=== PATIENT | female | born 1935 | race Caucasian/White ===

== ENCOUNTER 2016-05-23 08:27 | Emergency (ER) | payer MEDICARE, OTHER ==
--- NOTE | 2016-05-23 08:55 | Emergency Department Record ---
History of Present Illness - General Chief complaint: Extremity Problem Stated complaint: LT ARM PAIN, PT HAS AFIB Time Seen by Provider: 05/23/16 08:29 Source: Patient Mode of Arrival: Ambulatory Limitations: No limitations - History of Present Illness Initial comments: 81 yo female presents to ED with a CC of left sided upper arm pain for the past 3-4 days after lifting a heavy object at home. Patient reports pain with movement and palpation of the left upper arm. Patient reports a "twinge" of discomfort in her chest that is non-exertional in nature. Patient denies fevers , chills, or recent illness. Patient does report a hyistory of atrial fibrillation, on Xarelto. Patient reports that her last stress test was in 1.[address] Story. Complaint: Extremity pain Onset/Timin -: Days(s) Location: Left, Arm History of Same: No Severity scale (1-10): 8 Quality: Aching Consistency: Constant Improves with: Nothing Worsens with: Nothing Associated Symptoms: Other - Related Data Home Medications Medication Instructions Recorded Confirmed Last Taken Aspirin [Ecotrin] 325 mg PO DAILY 09/02/15 05/23/16 1 Day Ago Albuterol Sulfate [Ventolin Hfa] 1 - 2 puff IH .EVERY 4-6 HOURS PRN 12/03/15 Unknown Atenolol [Tenormin] 25 mg PO DAILY 12/03/15 05/23/16 Unknown Escitalopram Oxalate [Lexapro] 10 mg PO DAILY 12/03/15 05/23/16 Unknown Estrogens, Conjugated [Premarin] 0.3 mg PO DAILY 12/03/15 05/23/16 Unknown Gluc/Nathaniel-MSM#1/C/Yandel/Syed/Bor 1 tab PO DAILY 12/03/15 05/23/16 Unknown [Osteo Bi-Flex] Hyoscyamine Sulfate [Levsin Odt] 0.125 mg PO Q6H PRN 12/03/15 05/23/16 Unknown Multivit-Min/FA/Lycopene/Lut 1 each PO DAILY 12/03/15 05/23/16 Unknown [Centrum Silver Tablet] Apixaban [Eliquis] 2.5 mg PO DAILY 05/23/16 05/23/16 Unknown Allergies Allergy/AdvReac Type Severity Reaction Status Date / Time No Known Drug Allergies Allergy Verified 09/02/15 13:01 Travel Screening - Travel/Exposure Within Last 30 Days Have you traveled within the last 30 days?: No Review of Systems Constitutional: Denies: Chills, Fever, Malaise, Night sweats Eyes: Denies: Eye discharge, Eye pain ENT: Denies: Congestion, Ear pain, Epistaxis Respiratory: Denies: Cough, Dyspnea Cardiovascular: Reports: Chest pain, Palpitations. Denies: Dyspnea on exertion , Syncope Endocrine: Denies: Fatigue, Heat or cold intolerance Gastrointestinal: Denies: Abdominal pain, Nausea, Vomiting Genitourinary: Denies: Dysuria, Frequency, Hematuria, Incontinence Musculoskeletal: Denies: Arthralgia, Back pain, Gout, Joint swelling Skin: Denies: Bruising, Change in color Neurological: Denies: Abnormal gait, Confusion, Headache, Seizure Psychiatric: Denies: Anxiety Hematological/Lymphatic: Reports: Easy bleeding. 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 - NEURO Hx Neuro Disorders: No - GI Hx GI Disorders: No - Hx Genitourinary Disorders: No - ENDOCRINE Hx Endocrine Disorders: No - MUSCULOSKELETAL Hx Musculoskeletal Disorders: No - PSYCH Hx Psych Problems: No - HEMATOLOGY/ONCOLOGY Hx Hematology/Oncology Disorders: No Family Medical History Any Significant Family History?: No Physical Exam - General General Appearance: Alert, Oriented x3, Cooperative, No acute distress Limitations: No limitations - Head Head exam: Atraumatic, Normocephalic, Normal inspection Head exam detail: negative: Abrasion, Contusion, Gilliam's sign, General tenderness, Hematoma, Laceration - Eye Eye exam: Normal appearance. negative: Conjunctival injection, Periorbital swelling, Periorbital tenderness, Scleral icterus - ENT Ear exam: negative: Auricular hematoma, Auricular trauma Nasal Exam: negative: Active bleeding, Discharge, Dried blood, Foreign body Mouth exam: negative: Drooling, Laceration, Muffled voice, Tongue elevation - Neck Neck exam: Normal inspection. negative: Meningismus, Tenderness - Respiratory Respiratory exam: Normal lung sounds bilaterally. negative: Rales, Respiratory distress, Rhonchi, Stridor - Cardiovascular Cardiovascular Exam: Irregular rhythm - GI/Abdominal GI/Abdominal exam: Soft. negative: Rebound, Rigid, Tenderness - Rectal Rectal exam: Deferred - exam: Deferred - Extremities Extremities exam: Tenderness, Other (TTP over the lateral aspect of the left upper extremity, pain with active ROM of the arm. Post-operative chagnes to the left shoulder (rotator cuff per patient). Rapier Insertion Loom Fixer strength 5/5 and symmetric bilaterally.). negative: Calf tenderness, Pedal edema - Back Back exam: Denies: CVA tenderness (R), CVA tenderness (L) - Neurological Neurological exam: Alert, Normal gait, Oriented X3 - Psychiatric Psychiatric exam: Normal affect, Normal mood - Skin Skin exam: Normal color. negative: Abrasion Type of lesion: negative: abrasion Course Vital Signs 05/23/16 08:29 Temperature 97.9 F Pulse Rate 76 Respiratory 18 Rate Blood Pressure 156/91 Pulse Ox 99 - Reevaluation(s) Reevaluation #1: 05/23/16 08:55 Patient is currently CP-free. Discussed with the patient potential transfer for cardiac evaluation, patient declined at this time. After discussion with the patient, will perform (2) sets of cardiac enzymes, and if within normal limits, patient would like to go home and see Dr. Story Wednesday in the [facility] Wednesday afternoon. Orders placed. Reevaluation #2: 05/23/16 09:14 EKG: NSR 52 with PACs Q waves III, AVF, Q waves V1-V3, no acute ST-T wave change Unchanged from 12/03/15. Reevaluation #3: 05/23/16 09:36 Initial labs reviewed and are grossly unremarkable for an acute process. Will continue to monitor. Reevaluation #4: 05/23/16 12:47 Repeat Troponin is negative for myocardial damage. Patient appears stable for discharge home with instructions to follow-up with Dr. Story Wednesday for further cardiac evaluation. Medical Decision Making - Lab Data Result diagrams: 05/23/16 09:00 05/23/16 09:00 Disposition Disposition: Discharge Clinical Impression: Left upper arm pain Disposition: Home, Self-Care Condition: (2) Stable Instructions: Arthralgia (ED) Additional Instructions: Return to ED if your symptoms worsen or if you have any concerns. Follow-up with Dr. Story Wednesday in the [facility]. Referrals: SCOT STORY [DOCTOR OF OSTEOPATH] - [facility] [Provider Group] Forms: Patient Portal Access Time of Disposition: 12:48
[2016-05-23 09:08] LABS: BASO % 0.5 % (0-6); EOS % 2.1 % (0-6); HEMATOCRIT 44.5 % (35.0-47.0); HEMOGLOBIN 14.4 gm/dl (11.6-16.0); MEAN CELL VOLUME 96.9 fl (81-97); MEAN CORPUSCULAR HEMOGLOBIN 31.4 pg (27-33); MEAN CORPUSCULAR HGB CONC 32.4 g/dl (32-36); MEAN PLATELET VOLUME 10.3 fl (7.4-10.4); MONO % 5.4 % (0-9); PLATELET COUNT 344 K/uL (130-400); RED BLOOD COUNT 4.59 M/uL (3.80-5.40); RED CELL DISTRIBUTION WIDTH 13.3 % (11.5-14.5); WHITE BLOOD COUNT W/O DIFF 6.3 K/uL (4.2-12.2)
[2016-05-23 09:23] LABS: ALB/GLOB RATIO 1.7 (1.1-1.8); ALBUMIN 4.7 gm/dL (3.5-5.0); ALKALINE PHOSPHATASE 86 U/L (38-126); ALT/SGPT 20 U/L (9-52); ANION GAP 10.6 (7-16); AST/SGOT 21 U/L (14-36); BILIRUBIN,TOTAL 0.57 mg/dL (0.2-1.3); BLOOD UREA NITROGEN 17 mg/dL (7-17); CARBON DIOXIDE 29.4 mmol/L (22-30); CREATINE PHOSPHOKINASE 66 U/L (30-135); EST GLOMERULAR FILTRATION RATE 56 ml/min; GLUCOSE,RANDOM 101 mg/dL (70-110); TOTAL PROTEIN 7.5 gm/dL (6.3-8.2)
[2016-05-23 09:34] LABS: CKMB 0.7 ug/L (0-6)
[2016-05-23 09:35] LABS: TROPONIN I < 0.012 ng/mL (0.00-0.034)
[2016-05-23 12:43] LABS: CKMB 0.5 ug/L (0-6); TROPONIN I < 0.012 ng/mL (0.00-0.034)
== END 2016-05-23 12:55 | disposition home or self-care (01) ==
LOC: ER 08:27
DX: M79.622 Pain in left upper arm (principal); I48.91 Unspecified atrial fibrillation; Z79.01 Long term (current) use of anticoagulants; Z87.891 Personal history of nicotine dependence
CPT/HCPCS: 80053; 82550; 82553; 84484; 85025; 93005; 93010; 99284

== ENCOUNTER 2016-07-28 20:19 | Emergency (ER) | payer MEDICARE, OTHER ==
[2016-07-28] MEDS ORDERED: NITROGLYCERIN 0.4MG SL TABLET #25 BTL SL PRN (21:01)
[2016-07-28 21:11] LABS: BASO % 0.3 % (0-6); GRAN % 53.8 % (47-80); HEMATOCRIT 43.4 % (35.0-47.0); HEMOGLOBIN 13.9 gm/dl (11.6-16.0); LYMPH % 38.6 % (16-45); MEAN CELL VOLUME 96.2 fl (81-97); MEAN CORPUSCULAR HEMOGLOBIN 30.8 pg (27-33); MEAN PLATELET VOLUME 10.6 fl (7.4-10.4); MONO % 5.3 % (0-9); PLATELET COUNT 280 K/uL (130-400); RED BLOOD COUNT 4.51 M/uL (3.80-5.40); RED CELL DISTRIBUTION WIDTH 12.1 % (11.5-14.5); WHITE BLOOD COUNT W/O DIFF 6.1 K/uL (4.2-12.2)
[2016-07-28 21:21] LABS: ALB/GLOB RATIO 1.5 (1.1-1.8); ALBUMIN 4.3 gm/dL (3.5-5.0); ALKALINE PHOSPHATASE 99 U/L (38-126); ALT/SGPT 18 U/L (9-52); ANION GAP 6.6 (7-16); AST/SGOT 19 U/L (14-36); BILIRUBIN,TOTAL 0.39 mg/dL (0.2-1.3); BLOOD UREA NITROGEN 18 mg/dL (7-17); CARBON DIOXIDE 28.4 mmol/L (22-30); CREATINE PHOSPHOKINASE 63 U/L (30-135); CREATININE 0.9 mg/dL (0.52-1.04); EST GLOMERULAR FILTRATION RATE > 60 ml/min; GLUCOSE,RANDOM 80 mg/dL (70-110); TOTAL PROTEIN 7.1 gm/dL (6.3-8.2)
[2016-07-28 21:34] LABS: TROPONIN I < 0.012 ng/mL (0.00-0.034)
[2016-07-28] MEDS ORDERED: SOTALOL HCL 80 MG TABLET PO ONE (23:24)
[2016-07-28] MEDS ORDERED: SOTALOL HCL 80 MG TABLET PO SCH (23:30)
--- NOTE | 2016-07-29 00:15 | Emergency Department Record ---
History of Present Illness - General Chief Complaint: Chest Pain Stated Complaint: CHEST PAIN/HIGH BLOOD PRESSURE Time Seen by Provider: 07/28/16 20:47 Source: Patient Mode of Arrival: Ambulatory Limitations: No limitations - History of Present Illness Initial Comments: pt has been having problems with chest pain and htn for last 2 momths. she has been trying to get in with her tamper operator but has not been able to. she went to primary doctor who sent her for an ekg and then they sent her for a stress test but they didn't do it because her blood pressure was too high they told her. Complaint: Chest pain Onset/Timin -: Days(s) Onset: During exertion Pain Location: Left chest Severity scale (1-10): 8 Consistency: Intermittent Treatments Prior to Arrival: None - Related Data On Oral Contraceptives: No Home Medications Medication Instructions Recorded Confirmed Last Taken Aspirin [Ecotrin] 325 mg PO DAILY 09/02/15 07/28/16 1 Day Ago ~09/01/15 Albuterol Sulfate [Ventolin Hfa] 1 - 2 puff IH .EVERY 4-6 HOURS PRN 12/03/15 Unknown Atenolol [Tenormin] 25 mg PO DAILY 12/03/15 07/28/16 Unknown Escitalopram Oxalate [Lexapro] 10 mg PO DAILY 12/03/15 07/28/16 Unknown Estrogens, Conjugated [Premarin] 0.3 mg PO DAILY 12/03/15 07/28/16 Unknown Glucosam/Nathaniel-Msm1/C/Yandel/Bosw 1 tab PO DAILY 12/03/15 07/28/16 Unknown [Osteo Bi-Flex] Hyoscyamine Sulfate [Levsin Odt] 0.125 mg PO Q6H PRN 12/03/15 07/28/16 Unknown Multivit-Min/FA/Lycopen/Lutein 1 each PO DAILY 12/03/15 07/28/16 Unknown [Centrum Silver Tablet] Apixaban [Eliquis] 2.5 mg PO DAILY 05/23/16 07/28/16 Unknown Previous Rx's Medication Instructions Recorded Sotalol HCl [Sotalol] 80 mg PO BID #20 tablet 07/29/16 Allergies Allergy/AdvReac Type Severity Reaction Status Date / Time No Known Drug Allergies Allergy Verified 09/02/15 13:01 Travel Screening - Travel/Exposure Within Last 30 Days Have you traveled within the last 30 days?: No Review of Systems Reviewed: No additional complaints except as noted below Constitutional: Reports: As per HPI. Denies: Chills, Fever, Malaise, Night sweats, Weakness, Weight change Eyes: Reports: As per HPI. Denies: Eye discharge, Eye pain, Photophobia, Vision change ENT: Reports: As per HPI. Denies: Congestion, Dental pain, Ear pain, Epistaxis , Hearing loss, Throat pain Respiratory: Reports: As per HPI. Denies: Cough, Dyspnea, Hemoptysis, Stridor, Wheezes Cardiovascular: Reports: As per HPI. Denies: Arrhythmia, Chest pain, Dyspnea on exertion, Edema, Murmurs, Orthopnea, Palpitations, Paroxysmal nocturnal dyspnea, Rheumatic Fever, Syncope Endocrine: Reports: As per HPI. Denies: Fatigue, Heat or cold intolerance, Polydipsia, Polyuria Gastrointestinal: Reports: As per HPI. Denies: Abdominal pain, Constipation, Diarrhea, Hematemesis, Hematochezia, Melena, Nausea, Vomiting Genitourinary: Reports: As per HPI. Denies: Abnormal menses, Discharge, Dyspareunia, Dysuria, Frequency, Hematuria, Incontinence, Retention, Urgency Musculoskeletal: Reports: As per HPI. Denies: Arthralgia, Back pain, Gout, Joint swelling, Myalgia, Neck pain Skin: Reports: As per HPI. Denies: Bruising, Change in color, Change in hair/ nails, Lesions, Pruritus, Rash Neurological: Reports: As per HPI. Denies: Abnormal gait, Confusion, Headache, Numbness, Paresthesias, Seizure, Tingling, Tremors, Vertigo, Weakness Psychiatric: Reports: As per HPI. Denies: Anxiety, Auditory hallucinations, Depression, Homicidal thoughts, Suicidal thoughts, Visual hallucinations Hematological/Lymphatic: Reports: As per HPI. 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 - NEURO Hx Neuro Disorders: No - GI Hx GI Disorders: No - Hx Genitourinary Disorders: No - ENDOCRINE Hx Endocrine Disorders: No - MUSCULOSKELETAL Hx Musculoskeletal Disorders: No - PSYCH Hx Psych Problems: No - HEMATOLOGY/ONCOLOGY Hx Hematology/Oncology Disorders: No Family Medical History Any Significant Family History?: Yes Hx Cancer: Brother/Sister Hx Heart Disease: Brother/Sister Physical Exam - General General Appearance: Alert, Oriented x3, Cooperative, Mild distress - Head Head exam: Normal inspection - Eye Eye exam: Normal appearance, PERRL, EOMI Pupils: Normal accommodation - ENT ENT exam: Normal exam, Mucous membranes moist, Normal external ear exam, Normal orophraynx Ear exam: Normal external inspection. negative: External canal tenderness Nasal Exam: Normal inspection. negative: Discharge, Sinus tenderness Mouth exam: Normal external inspection, Tongue normal Teeth exam: Normal inspection. negative: Dental caries Throat exam: Normal inspection. negative: Tonsillar erythema, Tonsillar exudate - Neck Neck exam: Normal inspection, Full ROM. negative: Tenderness - Respiratory Respiratory exam: Normal lung sounds bilaterally. negative: Respiratory distress - Cardiovascular Cardiovascular Exam: Regular rate, Normal rhythm, Normal heart sounds - GI/Abdominal GI/Abdominal exam: Soft, Normal bowel sounds. negative: Tenderness - Rectal Rectal exam: Deferred - exam: Deferred - Extremities Extremities exam: Normal inspection, Full ROM, Normal capillary refill. negative: Tenderness - Back Back exam: Reports: Normal inspection, Full ROM. Denies: Muscle spasm, Rash noted, Tenderness - Neurological Neurological exam: Alert, CN II-XII intact, Normal gait, Oriented X3 - Psychiatric Psychiatric exam: Normal affect, Normal mood - Skin Skin exam: Dry, Intact, Normal color, Warm Course Vital Signs 07/28/16 07/28/16 07/28/16 20:25 21:00 21:30 Temperature 98.7 F Pulse Rate 79 Pulse Rate [ 55 L 55 L Pulse Ox Probe] Respiratory 18 Rate Blood Pressure 187/109 Blood Pressure 164/85 170/82 [Left Arm] Pulse Ox 99 07/28/16 07/28/16 22:00 22:30 Temperature Pulse Rate Pulse Rate [ 53 L 54 L Pulse Ox Probe] Respiratory Rate Blood Pressure Blood Pressure 172/85 175/96 [Left Arm] Pulse Ox Medical Decision Making - Lab Data Result diagrams: 07/28/16 20:35 07/28/16 20:35 Lab Results 06/20/17 06/20/17 06/20/17 Range/Units 20:35 20:35 20:35 WBC 6.1 (4.2-12.2) K/uL RBC 4.51 (3.80-5.40) M/uL Hgb 13.9 (11.6-16.0) gm/dl Hct 43.4 (35.0-47.0) % MCV 96.2 (81-97) fl MCH 30.8 (27-33) pg MCHC 32.0 (32-36) g/dl RDW 12.1 (11.5-14.5) % Plt Count 280 (130-400) K/uL MPV 10.6 H (7.4-10.4) fl Gran % 53.8 (47-80) % Lymphocytes % 38.6 (16-45) % Monocytes % 5.3 (0-9) % Eosinophils % 2.0 (0-6) % Basophils % 0.3 (0-6) % D-Dimer 0.20 (0-0.59) mg/L FEU Sodium 141 (136-145) mmol/L Potassium 3.8 (3.5-5.1) mmol/L Chloride 106 (98-107) mmol/L Carbon Dioxide 28.4 (22-30) mmol/L Anion Gap 6.6 L (7-16) BUN 18 H (7-17) mg/dL Creatinine 0.9 (0.52-1.04) mg/dL Estimated GFR > 60 ml/min Random Glucose 80 (70-110) mg/dL Calcium 9.3 (8.5-10.1) mg/dL Total Bilirubin 0.39 (0.2-1.3) mg/dL AST 19 (14-36) U/L ALT 18 (9-52) U/L Alkaline Phosphatase 99 (38-126) U/L Creatine Kinase 63 (30-135) U/L CK-MB (CK-2) 1.0 (0-6) ug/L Myoglobin 25.8 (0.0-61.5) ng/mL Troponin I < 0.012 (0.00-0.034) ng/mL NT-Pro-B Natriuret Pep 152.00 (<450) pg/mL Total Protein 7.1 (6.3-8.2) gm/dL Albumin 4.3 (3.5-5.0) gm/dL Globulin 2.8 (1.4-4.8) gm/dL Albumin/Globulin Ratio 1.5 (1.1-1.8) Disposition Disposition: Discharge Clinical Impression: Chest pain Qualifiers: Chest pain type: unspecified Qualified Code(s): R07.9 - Chest pain, unspecified HTN (hypertension) Qualifiers: Hypertension type: essential hypertension Qualified Code(s): I10 - Essential ( primary) hypertension Disposition: Home, Self-Care Condition: (1) Good Instructions: Chest Pain (ED), Chronic Hypertension (ED) Additional Instructions: follow up with family doctor. return sooner if worse Prescriptions: Sotalol HCl [Sotalol] 80 mg PO BID #20 tablet Forms: Patient Portal Access
== END 2016-07-29 01:13 | disposition home or self-care (01) ==
LOC: ER 20:19
DX: R07.9 Chest pain, unspecified (principal); I10 Essential (primary) hypertension; Z87.891 Personal history of nicotine dependence; I48.91 Unspecified atrial fibrillation
CPT/HCPCS: 80053; 82550; 82553; 83874; 83880; 84484; 85025; 85379; 93005; 93010; 99284

== ENCOUNTER 2018-01-20 09:03 | Emergency (ER) | payer MEDICARE, OTHER ==
--- NOTE | 2018-01-20 09:16 | Emergency Department Record ---
History of Present Illness - General Chief Complaint: Chest Pain Stated Complaint: CHEST PAIN Time Seen by Provider: 01/20/18 09:05 Source: Patient Mode of Arrival: Ambulatory Limitations: No limitations - History of Present Illness Initial Comments: 82 yo female presents with left scapular, shoulder and chest pain. The pains have been ongoing for months. She states the onset was close to 7-8 months ago. She has the pains frequently. She has been through testing including a Lexiscan stress test in November that was normal. Her financial planner has determined this pain is not cardiac in nature. She saw her PCP yesterday. She denies any changes to the pain or new symptoms. She states over the last 7-8 months the pain occur most mornings when she gets up. No cough. The pain tends to be sharp from the back to the chest in the morning then gradually resolve. This morning was typical of her prior experiences. The "twinges" come and go a little but are mostly gone now. No syncope. MD Complaint: Chest pain, Other (scapular, shoulder pain) Onset/Timin -: Month(s) Onset: During rest Pain Location: Left chest Pain Radiation: Neck Quality: Other (Sharp) Improves With: Nothing Worsens With: Nothing Context: Other Anginal Symptoms: Other Treatments Prior to Arrival: None - Related Data Allergies Allergy/AdvReac Type Severity Reaction Status Date / Time No Known Drug Allergies Allergy Verified 01/20/18 09:10 Travel Screening - Travel/Exposure Within Last 30 Days Have you traveled within the last 30 days?: No Review of Systems Constitutional: Denies: Chills, Fever, Malaise, Weakness Eyes: Denies: Eye discharge ENT: Denies: Congestion, Throat pain Respiratory: Denies: Cough, Dyspnea, Hemoptysis, Wheezes Cardiovascular: Reports: Chest pain. Denies: Dyspnea on exertion, Edema, Palpitations, Syncope Endocrine: Denies: Fatigue, Polydipsia, Polyuria Gastrointestinal: Denies: Abdominal pain, Diarrhea, Nausea, Vomiting Genitourinary: Denies: Dysuria, Urgency Musculoskeletal: Reports: Back pain. 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 - NEURO Hx Neuro Disorders: No - GI Hx GI Disorders: No - Hx Genitourinary Disorders: No - ENDOCRINE Hx Endocrine Disorders: No - MUSCULOSKELETAL Hx Musculoskeletal Disorders: No - PSYCH Hx Psych Problems: No - HEMATOLOGY/ONCOLOGY Hx Hematology/Oncology Disorders: No Family Medical History Hx Cancer: Brother/Sister Hx Heart Disease: Brother/Sister Physical Exam - General General Appearance: Alert, Oriented x3, Cooperative, No acute distress, Other ( Well appearing) Limitations: No limitations - Head Head exam: Atraumatic, Normocephalic, Normal inspection - Eye Eye exam: Normal appearance, PERRL. negative: Conjunctival injection, Scleral icterus - ENT ENT exam: Normal exam, Mucous membranes moist, Normal orophraynx Ear exam: Normal external inspection Nasal Exam: Normal inspection Mouth exam: Normal external inspection - Neck Neck exam: Normal inspection, Full ROM. negative: Tenderness - Respiratory Respiratory exam: Normal lung sounds bilaterally. negative: Accessory muscle use, Chest wall tenderness, Decreased breath sounds, Prolonged expiratory, Rales , Respiratory distress, Rhonchi, Stridor, Wheezes - Cardiovascular Cardiovascular Exam: Regular rate, Normal rhythm, Normal heart sounds. negative : Diastolic murmur, Systolic murmur, Tachycardia Peripheral Pulses: 2+: Radial (R), Radial (L) - GI/Abdominal GI/Abdominal exam: Soft. negative: Tenderness - Rectal Rectal exam: Deferred - exam: Deferred - Extremities Extremities exam: Normal inspection. negative: Calf tenderness, Pedal edema, Tenderness - Back Back exam: Reports: Tenderness. Denies: CVA tenderness (R), CVA tenderness (L) , Muscle spasm Image of Body Front/Back: 1 - tender medial to the scapula. Shoulder is non tender - Neurological Neurological exam: Alert, Oriented X3 - Psychiatric Psychiatric exam: Normal affect, Normal mood - Skin Skin exam: Dry, Intact, Normal color, Warm Course - Reevaluation(s) Reevaluation #1: EMR November 22 2017 Normal Lexiscan January 19 2018 Office visit reviewed. Patient reassured of recent work up, medication dosing compliance discussed RE: Sotalol, PT offered to patient. EKG 09:08 sinus rhythm, rate 51, intervals normal, axis normal, ST normal, poor R wave progression (old), inferior Qs (old). No changes from prior 11/03/17 01/20/18 09:13 01/20/18 09:38 The CBC was normal without significant abnormalities 01/20/18 10:22 The BMP including GFR were normal The Troponin is normal after months of atypical pain 01/20/18 11:52 The CTA of the Chest was negative DC to follow up with her PCP for the chronic pain this is very unlikely cardiac or other acute serious process. I encourage her to follow her PCP recommendation of PT Medical Decision Making - Lab Data Result diagrams: 01/20/18 09:15 01/20/18 09:15 Disposition Disposition: Discharge Clinical Impression: Chronic scapular pain, Atypical chest pain Disposition: Home, Self-Care Condition: (1) Good Instructions: Chest Pain (ED) Additional Instructions: Call your doctor and Dr Bailey for a recheck of your chronic pain Return if you have fever, cough, short of breath Consider your doctor's offer of physical therapy for the pain you have been having Forms: Patient Portal Access Time of Disposition: 11:53 Quality - Quality Measures Quality Measures: N/A - Blood Pressure Screening Does Patient Have Any of the Following: Active Dx of HTN Blood Pressure Classification: Pre-Hypertensive BP Reading Systolic Measurement: 138 Diastolic Measurement: 59 Screening for High Blood Pressure: Patient Exclusion, Hx of HTN [[id number]]
[2018-01-20 09:25] LABS: BASO % 0.5 % (0-6); EOS % 1.4 % (0-6); GRAN % 65.2 % (47-80); HEMATOCRIT 44.7 % (35.0-47.0); HEMOGLOBIN 14.5 gm/dl (11.6-16.0); LYMPH % 27.3 % (16-45); MEAN CELL VOLUME 97.6 fl (81-97); MEAN CORPUSCULAR HEMOGLOBIN 31.7 pg (27-33); MEAN CORPUSCULAR HGB CONC 32.4 g/dl (32-36); MEAN PLATELET VOLUME 10.2 fl (7.4-10.4); MONO % 5.6 % (0-9); PLATELET COUNT 305 K/uL (130-400); RED BLOOD COUNT 4.58 M/uL (3.80-5.40); RED CELL DISTRIBUTION WIDTH 13.2 % (11.5-14.5); WHITE BLOOD COUNT W/O DIFF 7.7 K/uL (4.2-12.2)
[2018-01-20 09:34] LABS: BLOOD UREA NITROGEN 18 mg/dL (8-23); CREATININE 0.9 mg/dL (0.5-0.9); EST GLOMERULAR FILTRATION RATE > 60 mL/min
[2018-01-20 09:36] LABS: GLUCOSE,RANDOM 83 mg/dL (74-109)
--- NOTE | 2018-01-22 09:05 | CT ANGIOGRAM REPORT ---
EXAM: CT ANGIOGRAM CHEST CTA w contrast HISTORY: LEFT SHOULDER BLADE AND LEFT CHEST PAIN. TECHNIQUE: CTA of the chest with 76 mm Omnipaque-350 intravenous contrast. COMPARISON: Chest radiograph, 12/03/2015. FINDINGS: Visualization of the thoracic aorta is partially obscured by beam- hardening from contrast bolus within the superior vena cava, pulmonary arteries , and heart. Thoracic aortic atherosclerotic calcification without findings to suggest aneurysm or dissection. No pulmonary artery filling defects to suggest embolism. No significant pericardial fluid collection. Heart appears enlarged. Multiple densely calcified nonenlarged mediastinal lymph nodes are seen. Lingular atelectasis, otherwise no focal pulmonary consolidation. Scattered calcified granulomata in the lungs. No pleural effusion or pneumothorax. No definite acute osseous findings. Appearance suggestive of pectus excavatum. Small low-density lesion in the left hepatic lobe. Significant bilateral glenohumeral arthrosis is noted. IMPRESSION: 1. VISUALIZATION OF THE THORACIC AORTA IS SLIGHTLY LIMITED BY BEAM-HARDENING ARTIFACT FROM ADJACENT CONTRAST BOLUS. NO DEFINITE FINDINGS TO SUGGEST THORACIC AORTIC ANEURYSM OR DISSECTION. 2. NO EVIDENCE OF PULMONARY EMBOLISM. 3. HEART APPEARS ENLARGED. 4. EVIDENCE OF HEALED CHRONIC GRANULOMATOUS DISEASE WITH CALCIFIED MEDIASTINAL LYMPH NODES AND SCATTERED BILATERAL CALCIFIED PULMONARY GRANULOMATA. 5. INCIDENTAL SMALL LOW-ATTENUATION LEFT HEPATIC LOBE LESION, STATISTICALLY LIKELY REPRESENTS A CYST OR HEMANGIOMA IN THE ABSENCE OF KNOWN MALIGNANCY. JOB NUMBER: [id number] [facility]
== END 2018-01-20 12:06 | disposition home or self-care (01) ==
LOC: ER 09:03
DX: G89.29 Other chronic pain (principal); M25.512 Pain in left shoulder; R07.9 Chest pain, unspecified; I48.91 Unspecified atrial fibrillation; F17.210 Nicotine dependence, cigarettes, uncomplicated
CPT/HCPCS: 99284 ×2; 85025; 80048; 84484; 71275; 93005; 93010; Q9967